=== PATIENT | male | born 1955 | race Caucasian/White ===

== ENCOUNTER 2018-09-08 16:34 | Emergency (ER) | payer BC, SELFPAY ==
[2018-09-08 16:36] VITALS: BP 149/101; PULSE 96; RESP 18; TEMP 36.7; O2SAT 97; BMI 29.7
--- NOTE | 2018-09-08 16:39 | ED.RN ---
PT ALERGIC TO A PAIN MEDICATION. UNSURE OF WHICH ONE.
[2018-09-08] MEDS: Diphth,Pertuss(Acell),Tet Vac 0.5 ML Vial IM (17:10)
--- NOTE | 2018-09-08 17:11 | ED.DCSUM_ITS ---
- ER Visit Summary Date of Service: 09/08/18 Chief Complaint: Left forearm laceration History of Present Illness: The patient is a 63 M who was unpacking from his recent move. He was using his pocket knife when it went into his left forearm. He notes a laceration. Unsure of last tetanus. Bleeding controlled. Physical Examination: Afebrile vital signs stable There is a 1 cm linear laceration to the volar lateral surface of the left forearm. There is no active bleeding. Neurovascular intact. No tendon injury noted. Emergency Department Course and Treatment: Tetanus was updated with Adacel. Wound was locally Using 1% lidocaine and washed with Shur-Clens and explored. Was closed using a total of 2 simple rapid 4-0 Ethilon sutures. Stitches will need to be removed in 10 days. Impression: 1. 1 cm left forearm laceration with repair This note was generated with Kiw[employer] dictation software. It may contain incorrect words, spelling, and punctuation that were not noted in review of the chart prior to signing ED Disposition - Plan for ED Patient: Disposition: Home or Assisted Living Instructions: LACERATION, All Referrals: Sylvia Barth, [NON-STAFF] - 10 Day for suture removal
== END 2018-09-08 17:34 | disposition home or self-care (01) ==
PROVIDERS: Emergency Provider Emergency Medicine
DX: S51.812A Laceration without foreign body of left forearm, initial encounter (principal); W26.0XXA Contact with knife, initial encounter; Y93.89 Activity, other specified; Y92.9 Unspecified place or not applicable; Y99.9 Unspecified external cause status; E78.00 Pure hypercholesterolemia, unspecified
CPT/HCPCS: 12001; 90471; 90715; 99283

== ENCOUNTER → 2018-11-21 10:13 | Outpatient (CLI) | payer BC, SELFPAY ==
--- NOTE | 2018-11-21 10:21 | RAD_ITS ---
HISTORY: PAIN AT BASE OF THUMB ADDITIONAL HISTORY: None provided. COMPARISON: None TECHNIQUE: Right hand 3 views Number of images including paperwork: 3 FINDINGS: BONES: Degenerative changes of the first carpometacarpal joint. Small ossific density is noted toward the ulnar side of the first carpometacarpal joint. Deformity of the fifth metacarpal neck consistent with previous fracture. JOINTS: Mild radial subluxation of the first carpometacarpal joint. SOFT TISSUES: No distinct foreign body. RAD/Hand Min 3 Views IMPRESSION: 1. Mild radial subluxation of the first carpal metacarpal joint of uncertain chronicity. 2. Small ossific density adjacent to the first carpometacarpal joint may be a small avulsion fracture or may be posttraumatic or degenerative in nature. at 2322 Reported and signed by: Ruth Harman MD Electronically Signed: Ruth Harman MD at 23:22 EDT Tel , Service support ,
== END ==
PROVIDERS: Family Provider Nurse Practitioner; PCP Nurse Practitioner; Referring Provider Nurse Practitioner; Visit Provider Nurse Practitioner
DX: M79.641 Pain in right hand (principal)
CPT/HCPCS: 73130

== ENCOUNTER → 2020-04-15 13:11 | Outpatient (CLI) | payer BC, SELFPAY ==
--- NOTE | 2020-04-15 13:11 | EKG12_ITS ---
Test Reason : PRE OP Blood Pressure : / mmHG Vent. Rate : 072 BPM Atrial Rate : 072 BPM P-R Int : 132 ms QRS Dur : 090 ms QT Int : 370 ms P-R-T Axes : 060 016 027 degrees QTc Int : 405 ms Normal sinus rhythm Septal infarct , age undetermined Abnormal ECG Confirmed by RISHI GORDILLO, IKE ([id number]), rewrite editor JOAN MACK ([id number]) on 04/16/2020 8:58:18 AM Referred By: Maximino Segovia Confirmed By:IKE BLACKWELL MD
[2020-04-15 13:28] LABS: Absolute Lymphocyte Count 2.44 X10^3/uL (0.83-4.51); Absolute Neutrophil Count 4.2 X10^3/uL (2.0-7.7); Basophil# 0.05 X10^3/uL; Basophil% 0.6 % (0-1); Eosinophil# 0.31 X10^3/uL; Eosinophils% 3.9 % (0-5); Hemoglobin 14.2 g/dL (13.0-16.5); Lymphocyte # 2.44 X10^3/ul (4.0); Lymphocyte % 30.6 % (19-41); Mean Corp Hgb Conc 33.8 g/dL (32-36); Mean Corpuscular Hgb 31.3 pg (27.0-32.0); Mean Corpuscular Volume 92.5 fL (80-94); Mean Platelet Vol. 10.2 fl (6.2-12.0); Monocyte# 0.92 X10^3/uL; Monocyte% 11.5 % (0-10); NRBC Flagged by Analyzer 0 % (0-5); Neutrophil # 4.21 X10^3/uL (2.7-7.7); Neutrophil % 52.8 % (47-70); Platelet Count 202 K/mm3 (150-450); RBC Distribution Width CV 12.9 % (11.6-14.6); RBC Distribution Width SD 43.9 fl (35.1-43.9); Red Blood Count 4.54 M/mm3 (4.6-6.2)
[2020-04-15 13:57] LABS: Anion Gap 5 (5-15); BUN 16 mg/dL (7-18); BUN/Creat Ratio 13.4 RATIO (10-20); Calcium,Total 8.8 mg/dL (8.5-10.1); Chloride 107 mmol/L (98-107); Creatinine, Serum 1.19 mg/dL (0.70-1.30); EST Glomerular Filtration Rate 65 mL/min (>60); Est Glom Filt Rate - Afr Amer 79 mL/min (>60); Glucose 98 mg/dL (74-106); Sodium Level 140 mmol/L (136-145)
== END ==
PROVIDERS: PCP Nurse Practitioner; Referring Provider Physician Assistant Surgical; Visit Provider Physician Assistant Surgical
DX: Z01.810 Encounter for preprocedural cardiovascular examination (principal); Z11.59 Encounter for screening for other viral diseases; Z01.818 Encounter for other preprocedural examination
CPT/HCPCS: 36415; 80048; 85025; 87635; 93005; C9803; U0005; U0003

== ENCOUNTER 2020-07-16 10:00 | Outpatient (RCR) | payer BC, SELFPAY ==
--- NOTE | 2020-05-28 17:20 | HP.OTEVAL_ITS ---
Patient's Visit Information KRYSTIN LORA is a 65 year old M, referred to Occupational Therapy by Dr. Reggie Kelsey MD, with a diagnosis of right unilateral primary OA first carpometacarpal joint. Date of Evaluation: 05/28/20 Occupational Therapist: Zeina Carlisle, DARIUS/Yaw, CHT - Subjective This 65 year old male was seen for OT eval with dx of CMC arthritis-pt states on 2020 pt had right CMC arthroplasty completed and arrives for custom orthosis to provide protection and support while healing and returning to his ADls. pt reports his thumb pain limited with ADls and IADls for over two years. Pt decided to have sx and is happy with results as he has min. pain - ADLs Fasteners: Buttons, Zippers, Snaps Eating: Bring food to mouth, Use silverware, Cut food Bathing: Handle washcloth & soap, Squeeze shampoo bottle Kitchen: Open jars, Open bottle caps, Pour from pitcher, Load/unload chief librarian music department - Pain right hand 2 Pain Intensity Range: 1, 4 - ROM Wrist: right 40/15 left 70/60 CMC: right 0 left 20 MP: right 10 left 40 IP: right 30 left 60 - Strength Fashion Photographer: right NT left 90# Lateral Pinch: right NT left 22# Tripod Pinch: right NT left 14# Strength Comments: will test strength at later date - Sensation Sensation Comments: denies - Quick DASH-Disab of Arm,Shoulder& Hand Quick DASH Score: 59.0900 - Goals Goal:100% adherence to protocol: Yes Comment: cmc arthroplasty protocol Goal:Daily scar massage when approriate: Yes Goal:ROM equal to unaffected hand: Yes Goal:Fashion Photographer/Pinch strength at least 75% of unaffected hand: Yes Goal:Full use of affected hand in daily activities including: Yes Other Goal: pt will demo ind. with donning/doffing custom thumb spica orthosis by end of 1st session. pt will demo understanding of returning to clinic for othosis adj. - Rehabilitation General Assessment: pt s/p 4 weeks from right CMC arthroplasty and demo limited ROM, weakness and pain with daily occupations. pt in need of custom orthosis to provide protection and support. Pt would benefit from skilled OT services 1-2x week for 8 weeks to assist pt in return to PLOF with ADls and IADls. Today therapist bert. custom thumb spica orthosis to provide support and protection- ed. pt on signs of irritation- pt demo understanding and demo IND doffing/donning of orthosis. Therapist ed. pt with wrist ROM, IP flex, MP flex with CMC supported. pt demo understanding of ex. therapist will progress pts ROM and strength as protocol indicates. Rehabilitation Potential: Good - Anticipated Interventions A/AAROM/PROM, Strengthening, Scar Care, Triggerpoint Release, Modalities, Orthoses, Joint Protection/Energy Conservation, Ergonomic Education, Education re assistive Equipment, Education re Diagnosis - Visit Plan Frequency: 1-2x /Week Duration: 2 Months TEXT: Thank you for the opportunity to evaluate your patient. For Medicare and Medicare HMO plans, please review the plan of care and approve it. It will need to be FAXED BACK to us at [phone] for Medicare purposes. Please let me know if there are questions or concerns regarding this plan of care. Physician Signature: Date:
--- NOTE | 2020-07-16 10:29 | HP.OTDCSUM ---
It has been my pleasure to treat KRYSTIN LORA under orders from Dr. Reggie Kelsey MD, for the diagnosis of right unilateral primary OA first carpometacarpal joint for a total of 9 visit(s). Please see the following information for a summary of their discharge status. % Improvement: 95 Objective/Function: wrist 60/ 45. CMC 20. MP 30. IP 55. right litigation legal secretary 55#. right lateral pinch 8#. pt demo good ROM and increase strength. Pt opposition to LF. pt states jesus care is a struggle due to limited wrist ROM- therapist ed. pt on PROM to decrease stiffness. pt has met OT goals and will continue with a HEP to continue with UB and litigation legal secretary strength. Patient Goals: Decrease Pain, Use Hand/Wrist/Arm Normally Again Goal:100% adherence to protocol: Yes Goal:Daily scar massage when approriate: Yes Goal:ROM equal to unaffected hand: Yes Goal:Semiconductor Wafer Inspector/Pinch strength at least 75% of unaffected hand: Yes Goal:Full use of affected hand in daily activities including: Yes Other Goal: pt will demo ind. with donning/doffing custom thumb spica orthosis by end of 1st session. pt will demo understanding of returning to clinic for othosis adj. Plan: D/C Discharge Comments: pt was seen for 9 OT visits following right CMC arthroplasty- pt has made great gains with his ROM and strength. pt reports 95% return from sx. pt has met OT goals and will cont with HEP. Pt D/C at this time - pt agree to POC If there are questions or concerns regarding this patient's occupational therapy, please fell free to call me at [phone]. Thank you for the referral of this patient. Sincerely, Zeina Carlisle, OTR/L, CHT
== END 2020-07-16 12:00 | disposition home or self-care (01) ==
LOC: OT 10:00
PROVIDERS: PCP Nurse Practitioner; Referring Provider Specialist; Visit Provider Specialist
DX: M18.11 Unilateral primary osteoarthritis of first carpometacarpal joint, right hand (principal)
CPT/HCPCS: 97035; 97110; 97166; 97530; 97760

== ENCOUNTER → 2022-04-13 | Outpatient (CLI) | payer MEDICARE, SELFPAY ==
--- NOTE | 2022-04-13 08:39 | EKG12_ITS ---
Test Reason : PRE-OP Blood Pressure : / mmHG Vent. Rate : 066 BPM Atrial Rate : 066 BPM P-R Int : 140 ms QRS Dur : 086 ms QT Int : 404 ms P-R-T Axes : 054 -05 021 degrees QTc Int : 423 ms Normal sinus rhythm Normal ECG Confirmed by DALTON GORDILLO, ZOILA ([id number]), continuity editor BRYAN PADILLA ([id number]) on 04/13/2022 1:59:44 PM Referred By: Reggie Kelsey Confirmed By:ZOILA HOFFMAN MD
[2022-04-13 09:54] LABS: Absolute Lymphocyte Count 1.77 X10^3/uL (0.83-4.51); Basophil# 0.03 X10^3/uL; Basophil% 0.4 % (0-1); Eosinophil# 0.23 X10^3/uL; Eosinophils% 3.3 % (0-5); Hematocrit 44.9 % (40-54); Hemoglobin 15.1 g/dL (13.0-16.5); Lymphocyte # 1.77 X10^3/ul (0.83-4.51); Lymphocyte % 25.4 % (19-41); Mean Corp Hgb Conc 33.6 g/dL (32-36); Mean Corpuscular Hgb 31.5 pg (27.0-32.0); Mean Corpuscular Volume 93.7 fL (80-94); Mean Platelet Vol. 10.2 fl (6.2-12.0); Monocyte# 0.88 X10^3/uL; Monocyte% 12.6 % (0-10); NRBC Flagged by Analyzer 0 % (0-5); Neutrophil # 4.03 X10^3/uL (2.7-7.7); Neutrophil % 57.9 % (47-70); Platelet Count 231 K/mm3 (150-450); RBC Distribution Width CV 12.9 % (11.6-14.6); RBC Distribution Width SD 44.4 fl (35.1-43.9); Red Blood Count 4.79 M/mm3 (4.6-6.2)
[2022-04-13 13:22] LABS: Anion Gap 8 (5-15); BUN 16 mg/dL (7-18); BUN/Creat Ratio 14.2 RATIO (10-20); Calcium,Total 9.2 mg/dL (8.5-10.1); Chloride 105 mmol/L (98-107); Creatinine, Serum 1.13 mg/dL (0.70-1.30); EST Glomerular Filtration Rate 69 mL/min (>60); Est Glom Filt Rate - Afr Amer 83 mL/min (>60); Glucose 99 mg/dL (74-106); Sodium Level 139 mmol/L (136-145)
== END | disposition home or self-care (01) ==
PROVIDERS: Physician Assistant Surgical; PCP Internal Medicine; Referring Provider Specialist; Visit Provider Specialist
DX: Z01.818 Encounter for other preprocedural examination (principal); Z01.810 Encounter for preprocedural cardiovascular examination
CPT/HCPCS: 36415; 80048; 85025; 93005

== ENCOUNTER 2022-07-13 10:30 | Outpatient (RCR) | payer MEDICARE, SELFPAY ==
--- NOTE | 2022-05-26 13:25 | HP.OTEVAL ---
Patient's Visit Information KRYSTIN LORA is a 67 year old M, referred to Occupational Therapy by Abhay Segovia PA-C, with a diagnosis of unilateral primary osteoarthrits of 1st CMC J. Date of Evaluation: 05/26/22 Occupational Therapist: Zeina Carlisle, DARIUS/Yaw, CHT - Subjective This 67 year old male was seen for OT eval with dx of left unilateral primary osteoarthritis of 1st carpometacarpal joint. pt states he had issues for over 5 years without successful conservative treatment. Pt states he opted for sx on 2022 he had left CMC arthroplasty done. Pt states he is happy with how his hand is recovering. This pt was seen in this facility by this CHT when he had his right CMC arthroplasty done. pt motivated to recover and return to PLOF. - ADLs Comments: pt currently limited with all ADls and IADLs. lives alone - ROM Wrist: right 60/55 left 40/20 CMC: right 20 left 0 MP: right 25 left 5 IP: right 55 left 15 Opposition: Kapandji opposition scale right 10 left 0 ROM Comments: pt demo with newly healing structures limiting pts ROM at this time. - Strength Kennel Manager Dog Track: right 90 left NT Lateral Pinch: right 18# left NT Tripod Pinch: right 10# left NT Strength Comments: will test later date - Sensation Sensation Comments: denies - Quick DASH-Disab of Arm,Shoulder& Hand Quick DASH Score: 65.0000 - Goals Goal:100% adherence to protocol: Yes Comment: CMC arthroplasty guidelines Goal:Daily scar massage when approriate: Yes Goal:ROM equal to unaffected hand: Yes Goal:Kennel Manager Dog Track/Pinch strength at least 75% of unaffected hand: Yes Goal:No pain with affected hand use: Yes Goal:Full use of affected hand in daily activities including: Yes Goal:Decrease scar hypersensitivity: Yes - Rehabilitation General Assessment: pt arrives 4 weeks and 5 days s/p from a left CMC arthroplasty. pt limited with use of left UE with ADLs and IADLs. pt had cast removed this date and due to newly healing structures pt demo need for custom orthosis to provide protection and support. Pt demo need for skilled OT services 1-2x week for 6 weeks to assist pt in return to his PLOF. Today therapist bert. custom orthosis, ed. in wearing and precautions- pt demo understanding- therapist ed. pt on AROM, tendon glides and support of CMC with IP ROM. pt demo understanding and agrees to POC. Rehabilitation Potential: Excellent - Anticipated Interventions A/AAROM/PROM, Strengthening, Scar Care, Triggerpoint Release, Desensitization, Modalities, Orthoses, Joint Protection/Energy Conservation, Fine Motor Coord/[place]guila, Education re assistive Equipment, Education re Diagnosis, Home Program - Visit Plan Frequency: 1-2x /Week Duration: 6 Weeks General Plan: 2weeks s/p custom thumb spica IPJ free. scar care, full finger ROM, full wrist ROM , MP and IPJ motion of thumb, Opposition to small finger while supporting CMC to prevent rocking at base of thumb and hand flat. 4wks s/p PROM cmc motion. 5-6wks pre-bert thumb orthotic daytime use -custom orthosis use and night and with heavy activity until 12 weeks s/p. 6-7wks light strengthening of naphthol soaping machine operator strengthening. at [address] ruiz full finger & wrist motion- hand flat and opposition to small finger between DIPJ & PIPJ. *Avoid forceful extension of thumb *. Week 8 D/C orthoplast splint by week 8 except for heavy activity PRN -progress to wrist strengthening and heavier prehension tasks. *Avoid forceful extension of the thumb*. Expectations: Most patients are treated with a Home Program and checked after each MD visit for program progression 2x weekly for 4-6 weeks for symptomatic patients or those returning to heavier work demands. 2 months to resume normal activities, 3 months for strenuous. 3-6 months to reach optimum results. slight decrease in pinch and naphthol soaping machine operator strength. generally, gain 70% of strength and motion of unoperated hand. TEXT: Thank you for the opportunity to evaluate your patient. For Medicare and Medicare HMO plans, please review the plan of care and approve it. It will need to be FAXED BACK to us at [phone] for Medicare purposes. Please let me know if there are questions or concerns regarding this plan of care. Physician Signature: Date:
--- NOTE | 2022-07-13 11:19 | HP.OTDCSUM ---
It has been my pleasure to treat KRYSTIN LORA under orders from Abhay Segovia PA-C, for the diagnosis of unilateral primary osteoarthrits of 1st CMC J for a total of 10 visit(s). Please see the following information for a summary of their discharge status. % Improvement: 90 Objective/Function: Mat Cleaning Machine Operator: right 105# left 60#. Lateral Pinch: right 24# left 14. Tripod Pinch: right 13# left 8#. left wrist ROM 55/45. right wrist ROM 65/55. left CMC20. left MP 25. left IP 45. pt has made functional gains in his recovery from his left CMC arthroplasty. pt continues to demo left mental retardation aide weakness but states he is comfortable where he is at with his strength- pt confirms he will continue to perform his HEP. use comfort cool thumb brace as needed Patient Goals: Regain Mobility, Regain Strength, Use Hand/Wrist/Arm Normally Again Goal:100% adherence to protocol: Yes Goal:Daily scar massage when approriate: Yes Goal:ROM equal to unaffected hand: Yes Goal:Mat Cleaning Machine Operator/Pinch strength at least 75% of unaffected hand: Yes Goal:No pain with affected hand use: Yes Goal:Full use of affected hand in daily activities including: Yes Goal:Decrease scar hypersensitivity: Yes Plan: Discharge. Discharge Comments: pt was seen for 10 OT sessions following a left CMC arthroplasty. 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 pt states he is working more and doing fine- will use his brace when needed. pt reports ind. with ADL and IADLS. pt happy with sx results and agrees with D/C. If there are questions or concerns regarding this patient's occupational therapy, please fell free to call me at [phone]. Thank you for the referral of this patient. Sincerely, Zeina Carlisle, OTR/L, CHT
== END 2022-07-13 19:00 | disposition home or self-care (01) ==
LOC: OT 10:30
PROVIDERS: PCP Internal Medicine; Referring Provider Physician Assistant Surgical; Visit Provider Physician Assistant Surgical
DX: M18.12 Unilateral primary osteoarthritis of first carpometacarpal joint, left hand (principal)
CPT/HCPCS: 97110; 97140; 97166; 97530; 97760

== ENCOUNTER 2023-04-07 07:44 | Emergency (ER) | payer MEDICARE, SELFPAY ==
[2023-04-07 07:45] VITALS: BP 152/85; PULSE 84; RESP 14; TEMP 36.6; O2SAT 97; BMI 29.3
--- NOTE | 2023-04-07 08:01 | EX.ED.UPPERE ---
HPI History of Present Illness Chief Complaint: Upper Extremity Injury Narrative Narrative: Six 8-year-old male presenting with right shoulder pain. Patient states he had slip and fall last evening and his new socks and try to catch himself with the right shoulder/arm and states that she landed on the left shoulder but strained the right shoulder. Denies head injury or LOC. Patient has pain over the deltoid region which is pretty well localized. He is moving his shoulder pretty well although he does have some pain over the deltoid when he moves it. PFSH PFSH Home Medications atorvastatin 20 mg tablet 20 mg PO QHS 09/08/18 [History Last Taken Unknown] Allergy/AdvReac Type Severity Reaction Status Date / Time No Known Allergies Allergy Verified 04/07/23 07:46 Social History Smoking Status: Former smoker ROS ROS ED Constitutional Constitutional ED: Denies chills, fever(s) or sweats Eyes Eyes: Denies blurry vision or change in vision ENT ENT ED: Denies ear pain or sore throat Cardiovascular Cardiovascular: Denies chest pain, palpitations or racing heartbeat Respiratory/Chest Respiratory/Chest: Denies cough, dyspnea or sputum Gastrointestinal Gastrointestinal: Denies abdominal pain, constipation, diarrhea, nausea or vomiting Genitourinary Genitourinary ED: Denies dysuria, hematuria or urinary frequency Musculoskeletal Musculoskeletal: Reports other Details: Right shoulder pain ; Denies arthralgias, myalgias or neck pain Integumentary Denies abscess, Abrasions or rash Neurologic Neurologic: Denies headache(s), paresthesias or weakness Psychiatric Psychiatric: Denies anxiety, depression, suicidal ideation or suicidal thoughts Endocrine Endocrinology: Denies polydipsia or polyuria EXAM Physical Exam Const Vital Signs: 04/07/23 07:45 Temperature 97.8 F Temperature Source Temporal Pulse Rate 84 Respiratory Rate 14 Blood Pressure 152/85 H Blood Pressure Mean 107 Pulse Ox 97 Oxygen Delivery Method Room Air Positive well nourished General Appearance ED: NAD HEENT normocephalic and atraumatic Eyes PERRL and EOMs intact bilaterally Resp normal respiratory effort Cardio regular rate and regular rhythm Extremity Extremity Narrative: Focal tenderness over the right deltoid region. No bruising, edema. Patient has full range of motion and abduction, abduction, flexion, extension although there is some pain elicited with range of motion. Neurovascular intact. Neuro oriented x3 and CN's II-XII intact bilaterally Sensorium / Orientation: alert Psych mental status grossly normal MDM MDM MDM Narrative Medical decision making narrative: Patient presenting with right shoulder pain. Appears to localize to the right deltoid. I have little suspicion of a torn rotator cuff and this is the patient's primary concern. I did discuss this with him and he states he wants to get an x-ray of the shoulder to make sure that he did not injure anything and this was ordered. He denies anything for pain.X-ray of the right shoulder my interpretation is no acute fracture or subluxation.Patient counseled on findings. He is counseled to use ice, Tylenol, ibuprofen. Return precautions were discussed. Impression: 1. Mechanical fall 2. Right shoulder contusion Discharge Plan Triage Chief Complaint: Upper Extremity Injury ED Provider: Alen Oconnor Dx/Rx/DC Orders Instructions: ED Shoulder Bruise Prescriptions: No Action atorvastatin 20 MG tablet 20 mg PO QHS Primary Care Provider: Edil Barron Referrals: Edil Barron MD [Primary Care Provider] - Disposition Disposition: Home, Self Care
--- NOTE | 2023-04-07 08:08 | RAD_ITS ---
STUDY: X-RAY - RIGHT SHOULDER REASON FOR EXAM: Male, 68 years old. Pain. TECHNIQUE: 4 views of the right shoulder. COMPARISON: None. FINDINGS: Normal glenohumeral articulation. Normal acromioclavicular joint. Normal acromion. Normal humeral head and visualized proximal humerus. The soft tissue structures are unremarkable. There is no demonstrated fracture. Normal visualized pulmonary apex. RAD/Shoulder min 2 Views IMPRESSION: Normal x-ray examination of the shoulder. Electronically Signed: Lorenzo Lucero MD at 8:21 EST ,
== END 2023-04-07 08:38 | disposition home or self-care (01) ==
PROVIDERS: Emergency Provider Student in an Organized Health Care Education/Training Program; PCP Internal Medicine; Visit Provider Student in an Organized Health Care Education/Training Program
DX: S40.011A Contusion of right shoulder, initial encounter (principal); Z87.891 Personal history of nicotine dependence; S46.911A Strain of unspecified muscle, fascia and tendon at shoulder and upper arm level, right arm, initial encounter; W01.0XXA Fall on same level from slipping, tripping and stumbling without subsequent striking against object, initial encounter
CPT/HCPCS: 73030; 99282